=== PATIENT | male | born 1960 | race Caucasian/White ===

== ENCOUNTER 2018-08-02 08:13 | Emergency (ER) | payer OTHER ==
--- NOTE | 2018-08-02 08:41 | Emergency Department Record ---
History of Present Illness - General Chief complaint: ENT Stated complaint: R EAR PLUGGED Time Seen by Provider: 08/02/18 08:24 Source: Patient Mode of Arrival: Ambulatory Limitations: No limitations - History of Present Illness Initial comments: The patient has had the feeling that his R ear is plugged for 2 days. He has a hx of wax buildup and denies any recent infections or pain. The patient also has a hx of HTN and is also under a lot of stress and states his BP has been running high recently. He denies any CP, WILLS, or visual changes. MD complaint: Other Onset/Timin -: Days(s) Location: R ear Context- Ear: Other - Related Data Home Medications Medication Instructions Recorded Confirmed Last Taken Diazepam [Valium] 5 mg PO QHS 08/02/18 08/02/18 08/01/18 Lisinopril 10 mg PO DAILY 08/02/18 08/02/18 08/02/18 Previous Rx's Medication Instructions Recorded Neomycin/Polymyxin B Sulf/Hc 3 drop AFFEAR TID #10 ml 08/02/18 [Cortisporin Otic] Allergies Allergy/AdvReac Type Severity Reaction Status Date / Time bee venom protein (honey bee) Allergy ANAPHYLAXIS Verified 08/02/18 08:24 Travel Screening - Travel/Exposure Within Last 30 Days Have you traveled within the last 30 days?: Yes Location Detail:: [place] - Travel/Exposure Within Last Year Have you traveled outside the [place] in the last year?: No - Additonal Travel Details Have you been exposed to anyone with a communicable illness?: No - Travel Symptoms Symptom Screening: None Review of Systems Constitutional: Denies: Chills, Fever Eyes: Denies: Eye discharge ENT: Denies: Congestion Respiratory: Denies: Cough, Dyspnea Past Medical History - SOCIAL HISTORY Smoking Status: Never smoker Alcohol Use: Occasional Drug Use: None - RESPIRATORY Hx Respiratory Disorders: No - CARDIOVASCULAR Hx Cardio Disorders: Yes Hx Hypertension: Yes - NEURO Hx Neuro Disorders: No - GI Hx GI Disorders: No - Hx Genitourinary Disorders: No - ENDOCRINE Hx Endocrine Disorders: No - MUSCULOSKELETAL Hx Musculoskeletal Disorders: No - PSYCH Hx Psych Problems: No - HEMATOLOGY/ONCOLOGY Hx Hematology/Oncology Disorders: No Family Medical History Any Significant Family History?: No Hx Cancer: Mother Hx HTN: Father Hx Kidney Disease: Father Hx Stroke: Father Physical Exam - General General Appearance: Alert, Oriented x3, No acute distress - Head Head exam: Normocephalic, Normal inspection - Eye Eye exam: PERRL - ENT ENT exam: negative: Normal exam, TM's normal bilaterally (The R TM is obstructed with cerumen.) Ear exam: Normal external inspection. negative: External canal tenderness Throat exam: Normal inspection. negative: Tonsillar erythema, Tonsillar exudate - Neck Neck exam: Normal inspection, Full ROM. negative: Tenderness - Extremities Extremities exam: Normal inspection, Full ROM, Normal capillary refill. negative: Tenderness - Neurological Neurological exam: Alert, Normal gait. negative: Abnormal gait, Motor sensory deficit - Psychiatric Psychiatric exam: negative: Anxious Course Vital Signs 08/02/18 08:15 Temperature 97.5 F L Pulse Rate 88 Respiratory 18 Rate Blood Pressure 184/106 Pulse Ox 97 - Reevaluation(s) Reevaluation #1: The patient is doing very well. We did remove a lot of wax from the R ear but there is still some packed way in the R ear up against the ear canal. The patient did have mild pain at the end of the last lavage we did stop the lavage. He is to use the abx drops and see an ENT next week for further removal. 08/02/18 09:00 Disposition Disposition: Discharge Clinical Impression: Impacted cerumen Qualifiers: Laterality: right Qualified Code(s): H61.21 - Impacted cerumen, right ear Disposition: Home, Self-Care Condition: (2) Stable Instructions: Cerumen Impaction (ED) Additional Instructions: Please use the Abx drops as directed in the R ear and please see an ENT next week. Also see your family doctor to have your BP rechecked. Prescriptions: Neomycin/Polymyxin B Sulf/Hc [Cortisporin Otic] 3 drop AFFEAR TID #10 ml Forms: Patient Portal Access Time of Disposition: 09:04 Quality - Quality Measures Quality Measures: N/A - Blood Pressure Screening View Details: Yes Does Patient Have Any of the Following: Active Dx of HTN Blood Pressure Classification: Hypertensive Reading Systolic Measurement: 184 Diastolic Measurement: 106 Screening for High Blood Pressure: Patient Exclusion, Hx of HTN [[id number]]
== END 2018-08-02 09:10 | disposition home or self-care (01) ==
LOC: ER 08:13
DX: H61.21 Impacted cerumen, right ear (principal); I10 Essential (primary) hypertension
CPT/HCPCS: 99282